=== PATIENT | female | born 1980 | race Two or more races ===

== ENCOUNTER → 2017-03-20 | Outpatient (CLI) | payer OTHER | LOC: FIMAGING 08:48 | DX: Z03.79 Encounter for other suspected maternal and fetal conditions ruled out (principal); O09.512 Supervision of elderly primigravida, second trimester; Z3A.13 13 weeks gestation of pregnancy ==

== ENCOUNTER → 2017-04-23 | Outpatient (CLI) | payer OTHER | LOC: FIMAGING 07:48 | PROVIDERS: ATTEND Registered Nurse | DX: O09.512 Supervision of elderly primigravida, second trimester (principal); Z3A.18 18 weeks gestation of pregnancy; Z20.828 Contact with and (suspected) exposure to other viral communicable diseases ==